=== PATIENT | female | born 1970 | race Caucasian/White ===

== ENCOUNTER → 2020-10-30 | Outpatient (CLI) | payer BC ==
[~2020-10-30] MED LIST: ERYTHROMYCIN O3.5 GM OD; LODINE CAP 300300 MG PO; TAMIFLU 75 MG C75 MG PO
== END ==
LOC: US 14:53
DX: N63.10 Unspecified lump in the right breast, unspecified quadrant (principal); I10 Essential (primary) hypertension; F41.9 Anxiety disorder, unspecified; G47.00 Insomnia, unspecified; M54.5 Low back pain; G89.29 Other chronic pain
CPT/HCPCS: 76641-RT

== ENCOUNTER → 2021-07-20 | Outpatient (CLI) | payer BC | LOC: RT 11:18 | DX: R00.0 Tachycardia, unspecified (principal) | CPT/HCPCS: 93005 ==

== ENCOUNTER → 2021-09-11 | Outpatient (CLI) | payer BC | LOC: LAB 10:52 | DX: E04.2 Nontoxic multinodular goiter (principal) | CPT/HCPCS: 36415; 84443 ==